=== PATIENT | male | born 1990 | race Caucasian/White ===

== ENCOUNTER 2018-01-15 13:36 | Emergency (ER) | payer SELFPAY ==
[~2018-01-15] VITALS: Ht 187.9 cm; Wt 99.8 kg
== END 2018-01-15 14:06 | disposition home or self-care (01) ==
LOC: ED 13:36
DX: S61.011A Laceration without foreign body of right thumb without damage to nail, initial encounter (principal); F17.200 Nicotine dependence, unspecified, uncomplicated; W26.0XXA Contact with knife, initial encounter; Y93.89 Activity, other specified; Y92.89 Other specified places as the place of occurrence of the external cause; Y99.8 Other external cause status